=== PATIENT | female | born 1970 | race Caucasian/White ===

== ENCOUNTER 2023-10-12 19:10 | Inpatient (IN) | payer MEDICAID, SELFPAY ==
--- NOTE | 2023-10-12 19:37 | XR_ITS ---
PROCEDURE INFORMATION: Exam: XR Chest Exam date and time: 10/12/2023 8:40 PM Age: 53 years old Clinical indication: Pain; Chest pressure; Additional info: Cp TECHNIQUE: Imaging protocol: Radiologic exam of the chest. Views: 1 view. COMPARISON: No relevant prior studies available. FINDINGS: Lungs: Interstitial prominence in the lower lungs. No focal consolidation. Pleural spaces: No pleural effusion. No pneumothorax. Heart/Mediastinum: Cardiomediastinal silhouette is normal. Bones/joints: No acute abnormality. IMPRESSION: Interstitial prominence in the lower lungs, may represent infectious/inflammatory process or mild interstitial edema. No focal consolidation.
--- NOTE | 2023-10-12 19:39 | P.HP_ITS ---
History of Present Illness *Admission Date: 10/12/23 *Reason for visit:: SOB/NSTEMI *History of present illness: This is a 53-year-old female, with past medical history of COPD on home oxygen 3 L at nighttime, hypertension, HLD, anxiety coming to the [facility] ER for evaluation increase of shortness of breath. Initially patient reported symptoms began the night before admission. She also reported having cough with some productive greenish sputum. Denies any fever, or chest pain, chills or sweats, no nausea or vomiting. On arrival patient underwent a CT of the chest that ruled out PEs. EKG was showed normal sinus rhythm with ST-T elevations or depressions. Initial troponin at her facility was elevated, therefore, our facility was contacted for transfer and cardiology consult. On arrival here. Patient continues to have difficulty breathing, remains on 3 L. Denies chest pain. Admitted for further workup [facility] Disclaimer: The information contained in this section may have been updated after the patient was seen, as this information can be updated by other users. Medical History Acute Crohn's disease Anxiety COPD (chronic obstructive pulmonary disease) Emphysema lung Heart disease Post hysterectomy menopause Surgical History H/O breast biopsy Family History Father Heart disease Mother Diabetes Sister Diabetes Other Stroke Social History Smoking Status: Current every day smoker alcohol intake: never current occupational status: other Travel in the last 8 weeks: None Review of Systems Review of Systems Review of systems:: pertinent systems reviewed and negative unless documented below Meds Home Medications and Allergies Home Medications Medication Instructions Recorded Confirmed Type atorvastatin 40 mg tablet 40 mg PO DAILY Cholesterol 10/12/23 10/12/23 History cariprazine 3 mg capsule (Vraylar) 3 mg PO DAILY Mood 10/12/23 10/12/23 History carvedilol 3.125 mg tablet (Coreg) 3.125 mg PO BID High Blood Pressure 10/12/23 10/12/23 History furosemide 40 mg tablet 20 - 40 mg PO DAILYP PRN Edema 10/12/23 10/13/23 History hydrochlorothiazide 12.5 mg capsule 25 mg PO DAILY Fluid 10/12/23 10/13/23 History hydrocodone 7.5 mg-acetaminophen 1 tab PO Q6HP PRN Moderate Pain 10/12/23 10/13/23 History 325 mg tablet (Scale Score 5-6) montelukast 10 mg tablet 10 mg PO PM Allergy Symptoms 10/12/23 10/13/23 History paroxetine HCl 20 mg tablet 20 mg PO DAILY 10/12/23 10/12/23 History trazodone 50 mg tablet 50 mg PO HSP PRN Insomnia 10/12/23 10/13/23 History albuterol sulfate 90 mcg/actuation 2 puff inhalation Q4HP PRN 10/13/23 10/13/23 History aerosol inhaler (Ventolin HFA) Shortness Of Breath aspirin 81 mg tablet,delayed 81 mg PO DAILY Heart Health 10/13/23 10/13/23 History release cyclobenzaprine 10 mg tablet 10 mg PO TID Muscle Spasm 10/13/23 10/13/23 History gabapentin 600 mg tablet 600 mg PO QID Pain 10/13/23 10/13/23 History ipratropium 0.5 mg-albuterol 3 mg 3 ml inhalation Q4HP PRN Wheezing 10/13/23 10/13/23 History (2.5 mg base)/3 mL nebulization soln ipratropium 20 mcg-albuterol 100 1 puff inhalation QID Breathing 10/13/23 10/13/23 History mcg/actuation mist for inhalation Problems (Combivent Respimat) New Prescriptions to Start Prescriptions: Allergies Allergy/AdvReac Type Severity Reaction Status Date / Time azithromycin AdvReac Severe Swelling Verified 10/12/23 20:05 of Lip/Tongue/Throat Penicillins AdvReac Severe Swelling Verified 10/12/23 20:05 of Lip/Tongue/Throat Exam Constitutional Constitutional: mild distress and cooperative *Routine HEENT Exam Head: Present normocephalic and atraumatic Eye: Present EOMI, PERRL and normal accommodation ENT: Present mucous membranes moist *Routine Neck Exam Neck: Present supple, full ROM and trachea midline *Routine Respiratory Exam Respiratory: Present prolonged expiratory phase, wheezes, diminished air movement and symmetric chest movement *Routine Cardiovascular Exam Cardiovascular: Present RRR, Normal S1 and Normal S2 *Routine Abdominal Exam Abdominal: Present soft and normoactive bowel sounds; Absent organomegaly *Routine Rectal Exam Rectal:: deferred *Routine Genitalia Exam Genitalia:: deferred *Routine Extremities Exam Extremities: Present full ROM and pulses intact; Absent cyanosis, clubbing or edema *Routine Skin Exam Skin: Present intact, dry and warm *Routine Neurological Exam Neurological: Present alert, oriented X3, normal reflexes, moving all extremities and normal speech Routine Psychiatric Exam Psychiatric: Present normal thought process, cooperative and anxious H&P: Result Imaging and Cardiology EKG: Status: image reviewed by me and Preliminary report Chest x-ray: Status: image reviewed by me, Preliminary report and final report Assessment and Plan *Assessment and plan (1) COPD exacerbation: Status: Acute Category: Medical Code(s): J44.1 - Chronic obstructive pulmonary disease with (acute) exacerbation (2) Elevated troponin: Status: Acute Category: Medical Code(s): R79.89 - Other specified abnormal findings of blood chemistry (3) Anxiety: Status: Acute Category: Medical Code(s): F41.9 - Anxiety disorder, unspecified (4) Current smoker: Status: Acute Category: Social Hx Code(s): F17.200 - Nicotine dependence, unspecified, uncomplicated Plan 53-year-old female, with past medical history of COPD on home oxygen 3 L at nighttime, hypertension, HLD, anxiety coming to the [facility] ER for evaluation increase of shortness of breath. Initially patient reported symptoms began the night before admission. Medications from other facility reviewed independently. No negative for acute intrathoracic process. EKG is reviewed. No ischemic changes. Patient remains on 3 L of nasal cannula. Physical exam remarkable for wheezing and cough. New set of lab ordered. Cardiology was consulted. Discussed case for management. Plan as follow: -Acute exacerbation of COPD: Presented with increased dyspnea and oxygen demand. Admit patient for medical services. Dispo MedSurg Obtain chest x-ray Started on doxycycline IV empirically DuoNeb every 6 Monitor for O2 saturation. Keep above 90, currently on 3 L Sputum culture pending Patient is swabbed for COVID and influenza negative -Elevated troponin: Presented with chest pain-free. NSTEMI. Likely type II. Due to oxygen demand/ mismatch Continue serial troponin Cardiac continuous telemetry Cardiology consult Keep n.p.o. after midnight for possible cardiac intervention Resume home med Nitroglycerin sublingual for pain management as needed On aspirin and statin Carvedilol and hydrochlorothiazide Anxiety exacerbated due to acute hospitalization Resume home Paxil trazodone one time Clonazepam 0.25mg given Current smoker On nicotine patch daily Lovenox for DVT prophylaxis. May hold it for cardiac catheterization On Protonix full code Rounded on patient after nurse practitioner. Personally examined and interviewed patient. Agree with exam findings and care plan as documented.
[2023-10-12 20:00] VITALS: BP 126/76; PULSE 94; RESP 20; TEMP 36.6; O2SAT 93
[2023-10-12 20:27] LABS: Basophils % 0.8 % (0.1-2.0); Eosinophils % 0.3 % (0.1-12.0); Hematocrit 45.3 % (37.0-47.0); Hemoglobin 15.2 g/dL (12.2-16.2); Lymphocytes % 34.3 % (10-50); Mean Corpuscular HGB Conc 33.6 g/dL (31.8-35.4); Mean Corpuscular Volume 89.3 fl (81-99); Mean Platelet Volume 9.5 fl (7.4-10.4); Monocytes # 0.1 K/mm3 (0.1-1.0); Monocytes % 2.2 % (1.7-9.3); Neutrophils # 1.9 K/mm3 (1.8-7.8); Neutrophils % 62.5 % (37.0-80.0); Platelet Count 105 K/mm3 (142-424); Red Blood Count 5.07 M/mm3 (4.20-5.40); Red Cell Distribution Width 14.3 % (11.5-17.5)
[2023-10-12 21:23] LABS: Troponin I 0.37 ng/ml (0.00-0.034)
--- NOTE | 2023-10-12 21:24 | PC.NURSE ---
2122 LAB CALLED CRITICAL TROPONIN 0.37. CHRISTINA Herring NP NOTIFIED. NO NEW ORDERS
[2023-10-12] MEDS: PANTOPRAZOLE 40MG TABLET 40 MG PO (21:27)
[2023-10-12 21:48] LABS: Chloride 102 mmol/L (98-107); Potassium 3.7 mmoL/L (3.5-5.1); Sodium 137 mmol/L (136-145)
[2023-10-12 21:50] LABS: Blood Urea Nitrogen 8 mg/dl (7-17); Estimated Glomerular Filt Rate 130 ml/min (>60); GFR (African American) 157 ML/MIN (>60)
[2023-10-12 21:51] LABS: Alanine Aminotransferase 30 U/L (12-78); Albumin Level 3.4 g/dl (3.5-5.0); Albumin/Globulin Ratio 1.3 (1.1-1.8); Alkaline Phosphatase 83 U/L (38-126); Anion Gap 7.7 mEq/L (5-15); Aspartate Amino Transferase 44 U/L (14-36); Bilirubin,Total 0.5 mg/dl (0.2-1.3); Calcium 8.6 mg/dl (8.4-10.2); Carbon Dioxide 31 mmol/L (22.0-30.0); Chol/HDL Ratio 5.1 (1-3.5); Cholesterol 139 mg/dl (140-200); Globulin 2.6 g/dL (1.3-3.2); Glucose 127 mg/dl (74-100); HDL Cholesterol 27 mg/dl (40-60); Triglycerides 110 mg/dl (30-150); VLDL Cholesterol 22 mg/dL (0-40)
[2023-10-12 22:49] LABS: Direct LDL Cholesterol 96.42 mg/dL (100-129)
[2023-10-12] MEDS: NICOTINE 21MG/24HR PATCH 21 MG TD (22:50)
[2023-10-12] MEDS: CARVEDILOL 3.125MG TABLET 3.125 MG PO (22:50)
[2023-10-12] MEDS: APAP/HYDROCODONE 325MG/7.5MG TAB 1 TAB PO (22:50)
[2023-10-12] MEDS: TRAZODONE 50MG TABLET 50 MG PO (22:51)
[2023-10-12] MEDS: IPRATROPIUM/ALBUTEROL 3 ML NEB IH (23:05)
--- NOTE | 2023-10-12 23:08 | PC.NURSE ---
RECEIVED VERBAL REPORT FROM Tano FOX RN AT 1930. PATIENT IS A 53 YO FEMALE WHO IS BEING TRANSPORTED FROM [facility]. DIAGNOSIS NSTEMI.
--- NOTE | 2023-10-12 23:10 | PC.NURSE ---
PATIENT ARRIVED AT 1913 VIA STRETCHER FROM [facility].
--- NOTE | 2023-10-12 23:10 | PC.NURSE ---
pt arrived to floor via [place] [facility] @07:15pm
--- NOTE | 2023-10-12 23:11 | PC.NURSE ---
PATIENT ANGRY. WANTS VALIUM FOR HER NERVES. VALIUM IS NOT ONE OF HER HOME MEDS. HAS PAXIL FOR ANXIETY BUT REFUSES THE PAXIL STATING ITS USELESS .
[2023-10-12 23:31] VITALS: PULSE 100; PULSE 98
[2023-10-13] VITALS (14 sets, daily range): BP systolic 101–147; BP diastolic 57–91; PULSE 67–103; RESP 16–20; TEMP 36.4–36.8; O2SAT 93–99; BMI 26.0
[2023-10-13] MEDS: DOXYCYCLINE HYCLATE 100 MG in 0.9 % SODIUM CHLORIDE 250 ML 166.667000000000002 MG IV ×2 (01:33→13:38)
[2023-10-13 02:27] LABS: Adenovirus,PCR Not Detected (NotDetected); Coronavirus 19, PCR Not Detected (NotDetected); Coronavirus 229E Not Detected (NotDetected); Coronavirus NL63 Not Detected (NotDetected); Coronavirus OC43 Not Detected (NotDetected); Coronovirus HKU1,PCR Not Detected (NotDetected); Human Metapneumovirus Not Detected (NotDetected); Influenza A, PCR Not Detected (NotDetected); Influenza AH1, 2009 Not Detected (NotDetected); Influenza AH1, PCR Not Detected (NotDetected); Influenza AH3,PCR Not Detected (NotDetected); Influenza B, PCR Not Detected (NotDetected); Parainfluenza 1, PCR Not Detected (NotDetected); Parainfluenza 2, PCR Not Detected (NotDetected); Parainfluenza 3, PCR Not Detected (NotDetected); Parainfluenza 4, PCR Not Detected (NotDetected); Respiratory Syncytial Virus Not Detected (NotDetected); Rhinovirus/Enterovirus Not Detected (NotDetected)
[2023-10-13] MEDS: clonazePAM 0.5MG TABLET 0.25 MG PO (02:28)
--- NOTE | 2023-10-13 02:32 | PC.NURSE ---
PATIENT IS ANGRY. WANTS VALIUM. WANTS MORE PAIN MED. REFUSES TO REMAIN NPO FOR CARDIOLOGY CONSULT. HAS REMOVED HER 02. HAVE SPOKEN TO CHRISTINA Herring FACILITIES OFFICER RE HER MEDS. NOTIFIED SCRAP DROP ENGINEER TO COME SPEAK WITH PATIENT SHE WILL NOT LISTEN TO ME. PAIN IS CHRONIC BACK PAIN. DENIES CHEST PAIN.
--- NOTE | 2023-10-13 02:44 | PC.NURSE ---
PATIENT DEMANDING 4 DR. GRANADOS AND A PITCHER OF ICE. EXPLAINED TO PATIENT THAT DR. DANG NOTING BY MOUTH FOR CARDIOLOGY CONSULT. PATIENT STATED THAT SHE WAS GOING TO DRINK AND IT WAS UP TO HER IF SHE HAD ANY PROCEDURE DONE. DR. GRANADOS AND ICE TAKEN TO PATIENT. PATIENT UPSET WITH PRIMARY NURSE REGARDING PAIN MEDS STATES SHE TAKES EVERY FOUR TO SIX HOURS NEEDED AND SHE TOOK IT AT 9 PM. MAR SHOWS MEDS ARE SCHEDULED AND RECEIVED AT 2250. PRIMARY NURSE SPOKE WITH REGIONAL ENGAGEMENT CONSULTANT, NO NEW ORDERS NOTED AT THIS TIME.
--- NOTE | 2023-10-13 02:46 | PC.NURSE ---
PATIENT REQUESTING AN XTRA NORCO 7.5MG . CHRISTINA Otoole NP NOTIFIED BUT DOES NOT WANT TO GIVE HER MORE NORCO AT THIS TIME. TRIED TO EXPLAIN TO PATIENT BUT SHE IS ANGRY. SAYS SHE WILL HAVE HER SISTER BRING THEM IN AND SHE WILL TAKE IT ANYWAY. ALSO REFUSES TO REMAIN NPO. REQUESTED AND RECEIVED 4 DR GRANADOS. CHRISTINA Herring NP NOTIFIED.
--- NOTE | 2023-10-13 02:49 | PC.NURSE ---
PATIENT ALSO REFUSING LABS.
--- NOTE | 2023-10-13 05:04 | PC.NURSE ---
REFUSES TO WEAR TELEMETRY.
[2023-10-13 06:15] LABS: Basophils % 0.5 % (0.1-2.0); Eosinophils % 0.1 % (0.1-12.0); Hematocrit 41.5 % (37.0-47.0); Hemoglobin 14.4 g/dL (12.2-16.2); Lymphocytes # 1.6 K/mm3 (0.7-4.5); Lymphocytes % 35.7 % (10-50); Mean Corpuscular HGB Conc 34.8 g/dL (31.8-35.4); Mean Corpuscular Hemoglobin 30.7 pg (27.0-31.2); Mean Corpuscular Volume 88.2 fl (81-99); Mean Platelet Volume 9.7 fl (7.4-10.4); Monocytes # 0.3 K/mm3 (0.1-1.0); Monocytes % 6.9 % (1.7-9.3); Neutrophils # 2.5 K/mm3 (1.8-7.8); Neutrophils % 56.8 % (37.0-80.0); Platelet Count 103 K/mm3 (142-424); Red Blood Count 4.71 M/mm3 (4.20-5.40); Red Cell Distribution Width 14.2 % (11.5-17.5); White Blood Count 4.4 K/mm3 (4.8-10.8)
[2023-10-13 06:17] LABS: Alanine Aminotransferase 32 U/L (12-78); Albumin Level 3.4 g/dl (3.5-5.0); Albumin/Globulin Ratio 1.3 (1.1-1.8); Alkaline Phosphatase 74 U/L (38-126); Anion Gap 8.5 mEq/L (5-15); Aspartate Amino Transferase 40 U/L (14-36); Bilirubin,Total 0.5 mg/dl (0.2-1.3); Blood Urea Nitrogen 11 mg/dl (7-17); Calcium 8.8 mg/dl (8.4-10.2); Carbon Dioxide 29 mmol/L (22.0-30.0); Chloride 104 mmol/L (98-107); Chol/HDL Ratio 6.1 (1-3.5); Cholesterol 134 mg/dl (140-200); Creatinine Clearance Estimated 148 mL/min (50-200); Estimated Glomerular Filt Rate 130 ml/min (>60); GFR (African American) 157 ML/MIN (>60); Globulin 2.7 g/dL (1.3-3.2); Glucose 125 mg/dl (74-100); HDL Cholesterol 22 mg/dl (40-60); Magnesium 1.8 mg/dl (1.6-2.3); Potassium 3.5 mmoL/L (3.5-5.1); Sodium 138 mmol/L (136-145); Total Protein,Serum 6.1 g/dl (6.3-8.2); Triglycerides 127 mg/dl (30-150); VLDL Cholesterol 25 mg/dL (0-40)
[2023-10-13] MEDS: IPRATROPIUM/ALBUTEROL 3 ML NEB IH ×4 (06:30→23:54)
--- NOTE | 2023-10-13 08:40 | CA_ITS ---
APPROVED REPORT EXAM: Comprehensive 2D, Doppler, and color-flow Echocardiogram Box Spring Maker: Ana Lucia RT(R) Ht: 5 ft 5 in Wt: 156lbs BSA: 1.78 BP: 143/72 mmHg Indications: NSTEMI, SOA, COPD, smoker, HTN, hyperlipidemia, emphysema, home O2, heart disease 2D Dimensions EF AP4 62.10 % GL Strain -16.0 % M-Mode Dimensions RVDd 2.41 cm (0.9-2.6) LA Diam 2.50 cm (1.9-4.0) LVDd 3.62 cm (3.5-5.7) LVDs 2.74 cm (3.5-5.7) IVSd 0.97 cm (0.6-1.1) PWd 0.85 cm (0.6-1.1) EF (Teich) 49.30% FS 24.30% EDV (Teich) 55.20 mL ESV (Teich) 28.00 mL LV Diastology E Decel Time 150 (160-240 msec) E/A Ratio 1.1 Mitral Valve MV E Max Zeus. 84.0 (40-130 cm/s) MV A Velocity 78.0 (40-130 cm/s) E/A Ratio 1.07 MV PHT 44.0 ms Left Ventricle The left ventricle is normal size. The left ventricular systolic function is normal. The left ventricular ejection fraction is within the normal range. There is increased left ventricular wall thickness. There is normal LV segmental wall motion. The left ventricular diastolic function is normal. LVEF is 60%. Right Ventricle The right ventricle is normal size. The right ventricular systolic function is normal. Atria The left atrium size is normal. The right atrium size is normal. There is no Doppler evidence of interatrial shunt. Aortic Valve The aorti valve opens well. There is no aortic valvular stenosis. No aortic regurgitation is present. Mitral Valve The mitral valve is normal in structure. No evidence of mitral valve stenosis. There is no mitral valve regurgitation noted. Tricuspid Valve The tricuspid valve leaflets are thin and pliable. Trace tricuspid regurgitation. There is insufficient TR jet to estimate RVSP. Pulmonic Valve The pulmonary valve is normal in structure. Trace pulmonic regurgitation. Great Vessels The aortic root is normal in size. The ascending aorta is not well visualized. The IVC is dilated, but collapses > 50% with respirophasic variation. RA pressure is estimated at 8 mmHg. Pericardium There is no pericardial effusion. Other Information Study Quality: Technically Difficult Conclusion Technically difficult study due to poor accoustic windows. Normal biventricular systolic function. No significant valvular stenosis or regurgitation. Electronically signed by : Bettie Reveles MD 10/13/2023 20:01:58
[2023-10-13 08:45] LABS: NT Pro Brain Natriuretic Pep. 2650 pg/mL (0-125)
--- NOTE | 2023-10-13 08:54 | HMH.PHAINT1 ---
Pharmacy Intervention Comments: MEDICATION RECONCILIATION COMPLETED ON PATIENT USING EXTERNAL FILL HISTORY FROM PHARMACY AND [facility] REPORT. -ARIANA COBOS, MACYD
[2023-10-13] MEDS: ASPIRIN EC 81MG TABLET 81 MG PO (09:15)
[2023-10-13] MEDS: PANTOPRAZOLE 40MG TABLET 40 MG PO (09:15)
[2023-10-13] MEDS: ATORVASTATIN 40MG TABLET 40 MG PO (09:15)
[2023-10-13] MEDS: APAP/HYDROCODONE 325MG/7.5MG TAB 1 TAB PO ×4 (09:15→20:06)
[2023-10-13] MEDS: CARVEDILOL 3.125MG TABLET 3.125 MG PO ×2 (09:15→20:05)
--- NOTE | 2023-10-13 11:41 | P.CONCA_ITS ---
History of Present Illness History of Present Illness Consult date: 10/13/23 Requesting physician: Raudel Bruno Consult reason: chest pain Chief complaint: Chest pain shortness of breath History of present illness: 53-year-old white female without known cardiovascular disease who has COPD and history of tobacco use. She is on 3 L of oxygen nightly. Patient reports several weeks of worsening episodes of mild chest discomfort with dyspnea on exertion walking flat ground. Yesterday she was just ambulating through her house and had sudden onset of severe heaviness and pressure in substernal region without radiation. She presented to [facility] emergency room where initial troponin and proBNP were elevated. She was transferred to this facility for cardiac evaluation. She was placed on guideline directed medical therapy overnight. This morning reports symptoms are slightly improved. Her EKG shows sinus rhythm with anteroseptal ST and T wave flattening. Her troponins elevated to 0.3 and are now trending down, chest x-ray shows interstitial prominence lower lungs edema versus infection, her white blood cell count is 4. LDL is 89 and blood pressure is 118. [facility] Disclaimer: The information contained in this section may have been updated after the patient was seen, as this information can be updated by other users. Medical History Acute Crohn's disease Anxiety COPD (chronic obstructive pulmonary disease) Emphysema lung Heart disease Post hysterectomy menopause Surgical History H/O breast biopsy Family History Father Heart disease Mother Diabetes Sister Diabetes Other Stroke Social History Smoking Status: Current every day smoker alcohol intake: never current occupational status: other Travel in the last 8 weeks: None Review of Systems Constitutional Constitutional: Denies fatigue and Denies weakness Eyes Eyes: Denies loss of vision ENT Ears, Nose, Mouth, and Throat: Denies hearing loss and Denies vertigo *Cardiovascular Cardiovascular: Denies chest pain, Reports dyspnea and Denies syncope *Respiratory Respiratory: Reports cough and Reports dyspnea *Gastrointestinal Gastrointestinal: Denies change in stool character, Denies nausea and Denies vomiting *Musculoskeletal Musculoskeletal: Denies muscle weakness Integumentary/Breasts Skin/Breast: Denies changing lesions *Neurologic Neurologic: Denies loss of vision, Denies syncope, Denies vertigo and Denies weakness Endocrine Endocrine: Denies fatigue Exam Data for Last 24 hours Vital signs and Labs for Last 24 Hours: Temp Pulse Resp BP Pulse Ox O2 Del Method O2 Flow Rate 98.2 F 77 18 125/65 99 Nasal Cannula 3 10/13/23 11:27 10/13/23 11:27 10/13/23 11:27 10/13/23 11:27 10/13/23 11:27 10/13/23 11:27 10/13/23 11:27 Laboratory Results - last 24 hr 10/12/23 01:40: Chlamy pneumoniae PCR TNP, Adenovirus (PCR) Not detected, B. pertussis DNA (PCR) TNP, Coronavirus OC43 (PCR) Not detected, Coronavirus HKU1 (PCR) Not detected, Coronavirus 229E (PCR) Not detected, SARS-CoV-2 (PCR) Not detected, Coronavirus NL63 (PCR) Not detected, Human Metapneumovir PCR Not detected, Influenza A (H1) PCR Not detected, Influ A (H1N1/09) PCR Not detected, Influenza A (H3) PCR Not detected, Influenza Type A (PCR) Not detected, Influenza Type B (PCR) Not detected, M. pneumoniae (PCR) TNP, Parainfluenza 1 (PCR) Not detected, Parainfluenza 2 (PCR) Not detected, Parainfluenza 3 (PCR) Not detected, Parainfluenza 4 (PCR) Not detected, RSV (PCR) Not detected, Entero/Rhino (PCR) Not detected 10/12/23 20:07: WBC 3.0 L, RBC 5.07, Hgb 15.2, Hct 45.3, MCV 89.3, MCH 30.0, MCHC 33.6, RDW 14.3, Plt Count 105 L, MPV 9.5, Neut % (Auto) 62.5, Lymph % (Auto) 34.3, Vermilion % (Auto) 2.2, Eos % (Auto) 0.3, Baso % (Auto) 0.8, Neut # (Auto) 1.9, Lymph # (Auto) 1.0, Vermilion # (Auto) 0.1, Eos # (Auto) 0.0, Baso # (Auto) 0.0, Sodium 137, Potassium 3.7, Chloride 102, Carbon Dioxide 31 H, Anion Gap 7.7, BUN 8, Creatinine 0.50 L, Estimated GFR 130, Est GFR ( Amer) 157, Glucose 127 H, Calcium 8.6, Total Bilirubin 0.5, AST 44 H, ALT 30, Alkaline Phosphatase 83, Troponin I 0.37 H, Total Protein 6.0 L, Albumin 3.4 L, Globulin 2.6, Albumin/Globulin Ratio 1.3, Triglycerides 110, Cholesterol 139 L, LDL Cholesterol Direct 96.42 L, VLDL Cholesterol 22, HDL Cholesterol 27 L, Cholesterol/HDL Ratio 5.1 H 10/13/23 05:52: WBC 4.4 L D, RBC 4.71, Hgb 14.4, Hct 41.5, MCV 88.2, MCH 30.7, MCHC 34.8, RDW 14.2, Plt Count 103 L, MPV 9.7, Neut % (Auto) 56.8, Lymph % (Auto) 35.7, Vermilion % (Auto) 6.9, Eos % (Auto) 0.1, Baso % (Auto) 0.5, Neut # (Auto) 2.5, Lymph # (Auto) 1.6, Vermilion # (Auto) 0.3, Eos # (Auto) 0.0, Baso # (Auto) 0.0, Sodium 138, Potassium 3.5, Chloride 104, Carbon Dioxide 29, Anion Gap 8.5, BUN 11 D, Creatinine 0.50 L, Estimated Creat Clear 148, Estimated GFR 130, Est GFR ( Amer) 157, Glucose 125 H, Calcium 8.8, Magnesium 1.8, Total Bilirubin 0.5, AST 40 H, ALT 32, Alkaline Phosphatase 74, Troponin I 0.20 H, NT-Pro-B Natriuret Pep 2650 H, Total Protein 6.1 L, Albumin 3.4 L, Globulin 2.7, Albumin/Globulin Ratio 1.3, Triglycerides 127, Cholesterol 134 L, LDL Cholesterol Direct 89.70 L, VLDL Cholesterol 25, HDL Cholesterol 22 L, Cholesterol/HDL Ratio 6.1 H I & O for Last 24 hours: Intake & Output 10/10/23 10/11/23 10/12/23 10/13/23 23:59 23:59 23:59 23:59 Intake Total 2161 Output Total 2 / 3 Balance -2 / 441 2160 Weight 156 lb 9.6 oz Constitutional Constitutional: no acute distress and cooperative *Routine HEENT Exam Eye: Present PERRL *Routine Respiratory Exam Respiratory: Present CTA bilaterally; Absent accessory muscle use, wheezes or crackles Comments: Mild expiratory wheezes *Routine Cardiovascular Exam Cardiovascular: Present RRR, Normal S1 and Normal S2; Absent murmur, gallop or rubs *Routine Abdominal Exam Abdominal: Present soft; Absent tenderness *Routine Extremities Exam Extremities: Present pulses intact; Absent cyanosis or edema *Routine Skin Exam Skin: Present intact; Absent erythema or wounds *Routine Neurological Exam Neurological: Present alert and oriented X3 Routine Psychiatric Exam Psychiatric: Present cooperative Meds Home Medications and Allergies Home Medications Medication Instructions Recorded Confirmed Type atorvastatin 40 mg tablet 40 mg PO DAILY Cholesterol 10/12/23 10/12/23 History cariprazine 3 mg capsule (Vraylar) 3 mg PO DAILY Mood 10/12/23 10/12/23 History carvedilol 3.125 mg tablet (Coreg) 3.125 mg PO BID High Blood Pressure 10/12/23 10/12/23 History furosemide 40 mg tablet 20 - 40 mg PO DAILYP PRN Edema 10/12/23 10/13/23 History hydrochlorothiazide 12.5 mg capsule 25 mg PO DAILY Fluid 10/12/23 10/13/23 History hydrocodone 7.5 mg-acetaminophen 1 tab PO Q6HP PRN Moderate Pain 10/12/23 10/13/23 History 325 mg tablet (Scale Score 5-6) montelukast 10 mg tablet 10 mg PO PM Allergy Symptoms 10/12/23 10/13/23 History paroxetine HCl 20 mg tablet 20 mg PO DAILY 10/12/23 10/12/23 History trazodone 50 mg tablet 50 mg PO HSP PRN Insomnia 10/12/23 10/13/23 History albuterol sulfate 90 mcg/actuation 2 puff inhalation Q4HP PRN 10/13/23 10/13/23 History aerosol inhaler (Ventolin HFA) Shortness Of Breath aspirin 81 mg tablet,delayed 81 mg PO DAILY Heart Health 10/13/23 10/13/23 History release cyclobenzaprine 10 mg tablet 10 mg PO TID Muscle Spasm 10/13/23 10/13/23 History gabapentin 600 mg tablet 600 mg PO QID Pain 10/13/23 10/13/23 History ipratropium 0.5 mg-albuterol 3 mg 3 ml inhalation Q4HP PRN Wheezing 10/13/23 10/13/23 History (2.5 mg base)/3 mL nebulization soln ipratropium 20 mcg-albuterol 100 1 puff inhalation QID Breathing 10/13/23 10/13/23 History mcg/actuation mist for inhalation Problems (Combivent Respimat) New Prescriptions to Start Prescriptions: Allergies Allergy/AdvReac Type Severity Reaction Status Date / Time azithromycin AdvReac Severe Swelling Verified 10/12/23 20:05 of Lip/Tongue/Throat Penicillins AdvReac Severe Swelling Verified 10/12/23 20:05 of Lip/Tongue/Throat Assessment and Plan *Assessment and plan (1) NSTEMI (non-ST elevated myocardial infarction): Status: Acute Category: Medical Code(s): I21.4 - Non-ST elevation (NSTEMI) myocardial infarction (2) COPD exacerbation: Status: Acute Category: Medical Code(s): J44.1 - Chronic obstructive pulmonary disease with (acute) exacerbation Plan NSTEMI -Worsening episodes of class III angina with rising serial troponin and EKG changes -Discussed options with patient, she is agreeable to left heart cath -Continue DAPT, beta-lew, statin COPD exacerbation -Patient on 3 L/min at home, former smoker -Nebs antibiotics etc. per primary service
--- NOTE | 2023-10-13 12:06 | IR_ITS ---
APPROVED REPORT Patient Location: Inpatient Circulating Nurse: JOSEPH Lauren RT (R) PROCEDURES Left heart catheterization Left ventriculogram Selective coronary angiogram INDICATION Acute non-ST elevation myocardial infarction Informed consent was obtained prior to the procedure. COMPLICATIONS NONE Estimated Blood Loss: LESS THAN 10 ML TECHNIQUE One percent lidocaine used to anesthetize the right anterior aspect of the wrist. The right radial artery was accessed via the Seldinger technique. A 6 Slovenian sheath was placed in the right radial artery. 2.5 mg of Verapamil, 800 mcg of nitroglycerin, 1mg Lidocaine and 5000 U Heparin were given through the arterial sheath. The papa catheter was also used to perform left heart catheterization, left ventriculogram and selective coronary angiogram. At the end of the procedure the sheath was removed good hemostasis was achieved using Traclet band, patient was transferred to the postop holding area in stable condition. ANGIOGRAPHIC RESULTS The left main artery Normal The left anterior descending artery Proximal mild 10% luminal irregularities with mid vessel 20% luminal regularities The circumflex artery Nondominant with proximal 10% luminal irregularities The right coronary artery Dominant with mid vessel 10 to 20% luminal regularities The VILLATORO ventriculogram reveals Mid anterior apical moderate hypokinesis with estimated ejection fraction of 40% The left ventricular end-diastolic pressure 30 mmHg IMPRESSION Mild nonflow limiting coronary artery disease Takotsubo cardiomyopathy producing large regional wall motion abnormality and reduced ejection fraction Elevated LVEDP PLAN 1. Supportive care for the stress cardiomyopathy. Recommend beta-blockers and ANURADHA inhibitors prior to discharge home 2. Echocardiogram to better evaluate ejection fraction 3. LDL less than 55 to be achieved with high intensity statin 4. Avoidance of tobacco products Electronically signed by : Lavell Curiel MD 10/13/2023 13:01:36
[2023-10-13] MEDS: VERAPAMIL 2.5MG/ML 2ML VIAL 2.5 MG IV (12:47)
[2023-10-13] MEDS: HEPARIN 1,000 UNITS/ML 10ML VIAL (CATH LAB) 10000 UNIT IV (12:48)
[2023-10-13] MEDS: NITROGLYCERIN 800MCG/8ML SYR (CATH LAB) 800 MCG IA (12:48)
[2023-10-13] MEDS: LIDOCAINE 1% 10ML MDV 20 ML IJ (12:48)
[2023-10-13] MEDS: FENTANYL 250MCG/5ML VIAL 50 MCG IV (13:01)
[2023-10-13] MEDS: MIDAZOLAM HCL 1MG/1ML 5ML VIAL 1 MG IV (13:02)
--- OUTSIDE RECORDS SUMMARY | 2023-10-13 13:06 | XMS_ITS | Continuity of Care Document ---
Author Name Unknown Address [address] [place] [phone] Organization [facility] Phone Care Team Providers Care Mural Artist Name Role Phone BOOM MACIAS Unavailable EMMANUEL SILVER Primary Care BOOM MACIAS Primary Attending BOOM MACIAS Admitting ALLERGIES AND ADVERSE REACTIONS ALLERGIES AND ADVERSE REACTIONS Code System Allergy Substance Adverse Reaction Date Reaction (Severity) [place] [id number] RXNorm Azithromycin Adverse reaction to substance Not Specified active [id number] on October 12, 2023 8:40:54 PM UTC RESULTS Patient: JUAN MONTGOMERY Date of : 1970 LABORATORY RESULTS ORDER 100: B-TYPE NATRIURETI C PEPTIDE BNP (LOINC: 53735-6) ORDER DATE: October 12, 2023 5:56:00 PM UTC Specimen Source: Whole Blood PERFORMING LAB: [address] [id number] Result Comment: Final Result Date: October 12, 2023 6:32:00 PM UTC (TECH: MRB) LOINC TEST FLAG [place] [address]-1 Natriuretic peptide B [Mass/volume] in Serum or Plasma N 9.4 pg/mL 0.0 pg/mL - 100 pg/mL October 12, 2023 6:32:00 PM UTC (TECH: MRB) ORDER 400: CBC AUTO W DIFF ( LOINC: 74800-8) ORDER DATE: October 12, 2023 5:56:00 PM UTC Specimen Source: Whole Blood PERFORMING LAB: [address] [id number] Result Comment: Final Result Date: October 12, 2023 6:24:00 PM UTC (TECH: MRB) LOINC TEST FLAG RESULT REFERENCE RANGE UPDA PIPER BY 6690-2 Leukocytes [#/volume] in Blood by Automated count N 5.4 10^3/uL 4.5 10^3/uL - 11.5 10^3/uL October 12, 2023 6:24:00 PM UTC (TECH: MRB) 789-8 Erythrocytes [#/volume] in Blood by Automated count N 5.51 10^6/uL 4.25 10^6/uL - 5.57 10^6/uL October 12, 2023 6:24:00 PM UTC (TECH: MRB) 718-7 Hemoglobin [Mass/volume] in Blood N 16.3 g/dL 13.5 g/dL - 17.2 g/dL October 12, 2023 6:24:00 PM UTC (TECH: MRB) 25373-7 Hematocrit [Volume Fraction] of Blood N 47.7 % 42.0 % - 52.0 % October 12, 2023 6:24:00 PM UTC (TECH: MRB) 787-2 Erythrocyte mean corpuscular volume [Entitic volume] by Automated count N 86.6 fl 80 fl - 95 fl October 12, 2023 6:24:00 PM UTC (TECH: MRB) 67642-5 Erythrocyte mean corpuscular hemoglobin [Entitic mass] in Blood from Fetus by Automated count N 29.6 pg 27.0 pg - 34.0 pg October 12, 2023 6:24:00 PM UTC (TECH: MRB) 13872-9 Erythrocyte mean corpuscular hemoglobin concentration [Mass/volume] in Blood from Fetus by Automated count N 34.2 g/dL 32.0 g/dL - 36.0 g/dL October 12, 2023 6:24:00 PM UTC (TECH: MRB) 46594-0 Platelets [#/volume] in Blood L 124 10^3/uL 150 10^3/uL - 450 10^3/uL October 12, 2023 6:24:00 PM UTC (TECH: MRB) 90670-8 Erythrocyte distribution width [Ratio] N 13.3 % 12.3 % - 15.1 % October 12, 2023 6:24:00 PM UTC (TECH: MRB) 81082-5 Platelet mean volume [Entitic volume] in Blood by Automated count H 12.2 fl 7.4 fl - 10.4 fl October 12, 2023 6:24:00 PM UTC (TECH: MRB) 60426-9 Granulocytes/100 leukocytes in Blood by Automated count N 61.5 % 40 % - 75 % October 12, 2023 6:24:00 PM UTC (TECH: MRB) 736-9 Lymphocytes/100 leukocytes in Blood by Automated count N 30.6 % 15 % - 57 % October 12, 2023 6:24:00 PM UTC (TECH: MRB) 5905-5 Monocytes/100 leukocytes in Blood by Automated count N 7.1 % 4.0 % - 12.0 % October 12, 2023 6:24:00 PM UTC (TECH: MRB) 713-8 Eosinophils/100 leukocytes in Blood by Automated count N 0.2 % 0.0 % - 4.0 % October 12, 2023 6:24:00 PM UTC (TECH: MRB) 706-2 Basophils/100 leukocytes in Blood by Automated count N 0.4 % 0.0 % - 1.0 % October 12, 2023 6:24:00 PM UTC (TECH: MRB) 04011-4 Immature granulocytes [#/volume] in Blood N 0.2 % 0.0 % - 0.8 % October 12, 2023 6:24:00 PM UTC (TECH: MRB) 08706-4 Granulocytes [#/volume] in Blood by Automated count N 3.30 10^3/uL October 12, 2023 6:24:00 PM UTC (TECH: MRB) 731-0 Lymphocytes [#/volume] in Blood by Automated count N 1.64 10^3/uL October 12, 2023 6:24:00 PM UTC (TECH: MRB) 742-7 Monocytes [#/volume] in Blood by Automated count N 0.38 10^3/uL October 12, 2023 6:24:00 PM UTC (TECH: MRB) 711-2 Eosinophils [#/volume] in Blood by Automated count N 0.01 10^3/uL October 12, 2023 6:24:00 PM UTC (TECH: MRB) 704-7 Basophils [#/volume] in Blood by Automated count N 0.02 10^3/uL October 12, 2023 6:24:00 PM UTC (TECH: MRB) 12681-0 Immature granulocytes [#/volume] in Blood N 0.01 10^3/uL October 12, 2023 6:24:00 PM UT (TECH: MRB) 82766-0 Manual differential performed [Presence] in Blood N NO October 12, 2023 6:24:00 PM UT (TECH: MRB) ORDER 500: COMP METABOLIC PA BRIANNE (LOINC: 09637-9) ORDER DATE: October 12, 2023 5:56:00 PM UT Specimen Source: Plasma PERFORMING LAB: [address] [id number] Result Comment: Final Result Date: October 12, 2023 6:30:00 PM UT (TECH: MRB) LOINC TEST FLAG RESULT REFERENCE RANGE UPDA PIPER BY 2951-2 Sodium [Moles/volume ] in Serum or Plasma N 137 mmol/L 136 mmol/L - 145 mmol/L October 12, 2023 6:30:00 PM UT (TECH: MRB) 2823-3 Potassium [Moles/volume] in Serum or Plasma L 3.3 mmol/L 3.5 mmol/L - 5.1 mmol/L October 12, 2023 6:30:00 PM UT (TECH: MRB) 5-0 Chloride [Moles/volu me] in Serum or Plasma L 97 mmol/L 98 mmol/L - 107 mmol/L October 12, 2023 6:30:00 PM UT (TECH: MRB) 8-9 Carbon dioxide, tota l [Moles/volume] in Serum or Plasma N 32 mmol/L 21 mmol/L - 32 mmol/L October 12, 2023 6:30:00 PM UTC (TECH: MRB) 00785-7 Anion gap 3 in Serum or Plasma N 8.0 October 12, 2023 6:30:00 PM UTC (TECH: MRB) 2345-7 Glucose [Mass/volume ] in Serum or Plasma H 111 mg/dL 70 mg/dL - 110 mg/dL October 12, 2023 6:30:00 PM UTC (TECH: MRB) 3094-0 Urea nitrogen [Mass/volume] in Serum or Plasma N 7 mg/dL 7 mg/dL - 18 mg/dL October 12, 2023 6:30:00 PM [facility] (TECH: MRB) 2160-0 Creatinine [Mass/volume] in Serum or Plasma L 0.6 mg/dL 0.8 mg/dL - 1.3 mg/dL October 12, 2023 6:30:00 PM [facility] (TECH: MRB) 3097-3 Urea nitrogen/Creatinine [Mass Ratio] in Serum or Plasma N 11.7 Ratio 9 Ratio - 21 Ratio October 12, 2023 6:30:00 PM [facility] (TECH: MRB) 59936-5 Glomerular filtratio n rate/1.73 sq M.predicted by Creatinine-based formula (MDRD) N 150 mL/min >60 October 12, 2023 6:30:00 PM [facility] (TECH: MRB) 2885-2 Protein [Mass/volume ] in Serum or Plasma N 7.7 g/dL 6.4 g/dL - 8.2 g/dL October 12, 2023 6:30:00 PM [facility] (TECH: MRB) 1751-7 Albumin [Mass/volume ] in Serum or Plasma N 3.4 g/dL 3.4 g/dL - 5.0 g/dL October 12, 2023 6:30:00 PM [facility] (TECH: MRB) 22835-1 Calcium [Mass/volume ] in Serum or Plasma N 9.1 mg/dL 8.5 mg/dL - 10.1 mg/dL October 12, 2023 6:30:00 PM [facility] (TECH: MRB) 24529-7 Calcium [Mass/volume ] corrected for total protein in Serum or Plasma N 9.6 mg/dL 8.5 mg/dL - 10.1 mg/dL October 12, 2023 6:30:00 PM [facility] (TECH: MRB) 1975-2 Bilirubin.total [Mass/volume] in Serum or Plasma N 0.5 mg/dL 0.4 mg/dL - 1.5 mg/dL October 12, 2023 6:30:00 PM [facility] (TECH: MRB) 1920-8 Aspartate aminotransferase [Enzymatic activity/volume] in Serum or Plasma H 44 U/L 15 U/L - 37 U/L October 12, 2023 6:30:00 PM [facility] (TECH: MRB) 1742-6 Alanine aminotransferase [Enzymatic activity/volume] in Serum or Plasma N 35 U/L 12 U/L - 78 U/L October 12, 2023 6:30:00 PM UTC (TECH: MRB) 6768-6 Alkaline phosphatase [Enzymatic activity/volume] in Serum or Plasma N 86 U/L 50 U/L - 170 U/L October 12, 2023 6:30:00 PM UTC (TECH: MRB) ORDER 600: CK MB (LOINC: 326 73-6) ORDER DATE: October 12, 2023 5:56:00 PM UTC Specimen Source: Plasma PERFORMING LAB: [address] [id number] Result Comment: Final Result Date: October 12, 2023 6:30:00 PM UT (TECH: MRB) LOINC TEST FLAG [place] [address]-7 Creatine kinase.MB [Enzymatic activity/volume] in Serum or Plasma N 3.0 ng/mL 0.0 ng/mL - 3.6 ng/mL October 12, 2023 6:30:00 PM UTC (TECH: MRB) ORDER 800: D-DIMER QUANTITAT GO (LOINC: 7799-0) ORDER DATE: October 12, 2023 5:56:00 PM UTC Specimen Source: Plasma PERFORMING LAB: [address] [id number] Result Comment: Final Result Date: October 12, 2023 6:59:00 PM UTC (TECH: LT) LOINC TEST FLAG RESULT REFERENCE RANGE UPDA PIPER BY 7799-0 Fibrin D-dimer [Units/volume] in Platelet poor plasma HH 1094.94 ng/mL 0 ng/mL - 500 ng/mL October 12, 2023 6:59:00 PM UTC (TECH: LT) ORDER 1000: PT PROTHROMBIN T MIS W INR (LOINC: 44921-2) ORDER DATE: October 12, 2023 5:56:00 PM UTC Specimen Source: Plasma PERFORMING LAB: [address] [id number] Result Comment: Final Result Date: October 12, 2023 6:18:00 PM UTC (TECH: HC) LOINC TEST FLAG [place] [address]-0 INR in Platelet poor plasma or blood by Coagulation assay N 9.3 seconds 9.1 seconds - 12.0 seconds October 12, 2023 6:18:00 PM UTC (TECH: HC) 6301-6 INR in Platelet poor plasma by Coagulation assay L 0.84 0.9 - 1.1 October 12, 2023 6:18:00 PM UTC (TECH: HC) ORDER 1100: PTT PARTIAL THRO MB TIME (LOINC: 72413-7) ORDER DATE: October 12, 2023 5:56:00 PM UTC Specimen Source: Plasma PERFORMING LAB: [address] [id number] Result Comment: Final Result Date: October 12, 2023 6:18:00 PM UTC (TECH: HC) LOINC TEST FLAG [place] [address]-7 Activated partial thromboplastin time (aPTT) in Platelet poor plasma by Coagulation assay N 30.1 seconds 24.5 seconds - 32.8 seconds October 12, 2023 6:18:00 PM UTC (TECH: HC) ORDER 1200: TROPONIN QUANT ( LOINC: 82403-4) ORDER DATE: October 12, 2023 5:56:00 PM UTC Specimen Source: Plasma PERFORMING LAB: [address] [id number] Result Comment: Final Result Date: October 12, 2023 6:31:00 PM UTC (TECH: MRB) LOINC TEST FLAG [place] [address]-4 Troponin I.cardiac panel - Serum or Plasma by High sensitivity method HH 635 ng/L 0 ng/L - 76 ng/L October 12, 2023 6:31:00 PM UTC (TECH: MRB) ORDER 1300: INFLUENZA A/B SC REEN (LOINC: 46997-7) ORDER DATE: October 12, 2023 5:56:00 PM UTC Specimen Source: Swab PERFORMING LAB: [address] [id number] Result Comment: Final Result Date: October 12, 2023 7:06:00 PM UTC (TECH: LT) LOINC TEST FLAG [place] [address]-9 Influenza virus A Ag [Presence] in Nose N negative NEGATIVE October 12, 2023 7:06:00 PM UTC (TECH: LT) 46143-0 Haemophilus influenzae B Ag [Presence] in Serum N negative NEGATIVE October 12, 2023 7:06:00 PM UTC (TECH: LT) 05923-0 Internal control result N PASS PASS October 12, 2023 7:06:00 PM UTC (TECH: LT) ORDER 1400: SARS-COV-2 SOLAN A IN HOUSE (LOINC: 46956-1) ORDER DATE: October 12, 2023 5:56:00 PM UTC Specimen Source: Nasopharyng eal PERFORMING LAB: [address] [id number] Result Comment: Final Result Date: October 12, 2023 7:37:00 PM UTC (TECH: MRB) LOINC TEST FLAG [place] [address]-6 SARS-CoV-2 (COVID-19) RNA [Presence] in Respiratory specimen by SONIA with probe detection N NEGATIVE NEGATIVE October 12, 2023 7:37:00 PM UTC (TECH: MRB) ORDER 1700: LACTIC ACID (PRIYANK NC: 77184-5) ORDER DATE: October 12, 2023 6:07:00 PM UTC Specimen Source: Serum/Plasm a PERFORMING LAB: [address] [id number] Result Comment: Final Result Date: October 12, 2023 7:07:00 PM UTC (TECH: LT) LOINC TEST FLAG [place] [address]-0 Lactate [Mass/volume] in Serum or Plasma N 0.9 mmole/L 0.4 mmole/L - 2.0 mmole/L October 12, 2023 7:07:00 PM UTC (TECH: LT) ORDER 1900: TROPONIN QUANT ( LOINC: 64787-1) ORDER DATE: October 12, 2023 8:21:00 PM UTC Specimen Source: Plasma PERFORMING LAB: [address] [id number] Result Comment: Final Result Date: October 12, 2023 9:04:00 PM UTC (TECH: HC) LOINC TEST FLAG [place] [address]-3 Troponin I.cardiac p rhiannon - Serum or Plasma by High sensitivity method HH 679 ng/L 0 ng/L - 51 ng/L October 12, 2023 9:04:00 PM UTC (TECH: HC) LABORATORY NARRATIVE RESULTS Information is not available RADIOLOGY RESULTS ORDER 1500: CHEST PA AND LAT (LOINC: 30267-0) ORDER DATE: October 12, 2023 5:56:00 PM [facility] PATHOLOGY NARRATIVE RESULTS Information is not available MICROBIOLOGY RESULTS No Micro Labs/Results Exist for Patient BLOOD ADMIN RESULTS Information is not available TREATMENT PLAN DISCHARGE MEDICATIONS Status RXNORM Medication Dose Route Frequency Dates Comments U pdated By Patient discharge medication information is not available. PATIENT OPEN ORDERS Code System Description Frequency Occurrences Priority Start Date Ordering Physician Updated By 600-7 LOINC Bacteria identified in Blood by Culture ONE TIME 0 Stat October 12, 2023 5:56:00 PM [facility] on October 12, 2023 5:56:00 PM [facility] 600-7 LOINC Bacteria identified in Blood by Culture ONE TIME 0 Stat October 12, 2023 5:56:00 [facility] on October 12, 2023 5:56:00 PM [facility] SCHEDULED PROCEDURES Code System Description Status Scheduled Date Upd ated By Patient scheduled procedure information is not available. MEDICATIONS HOME MEDICATIONS Status RXNORM Medication Dose Route Frequency Dates Comments R eported By Updated By Active 829228 montelukast 10 m g tablet 1.0 TAB PO DAILY Last Dose: [id number] on October 12, 2023 6:07:33 PM [facility] Active 298599 aspirin 81 mg tablet, delayed release (enteric coated) 1.0 TAB PO DAILY Last Dose: [id number] on October 12, 2023 6:07:33 PM [facility] Active 589943 hydrochlorothiaz i de 12.5 mg capsule 2.0 CAP PO DAILY Last Dose: [id number] on October 12, 2023 6:07:34 PM [facility] Active 8414189 Vraylar 3 mg capsule 1.0 CAP PO DAILY Last Dose: [id number] on October 12, 2023 6:07:34 PM [facility] Active 062735 carvedilol 3.125 mg tablet 1.0 TAB PO BID Last Dose: [id number] on October 12, 2023 6:07:34 PM [facility] Active 075985 trazodone 50 mg tablet 1.0 TAB PO DAILY Last Dose: [id number] on October 12, 2023 6:07:34 PM [facility] Active 622229 furosemide 40 mg tablet 1.0 TAB PO DAILY Last Dose: [id number] on October 12, 2023 6:07:34 PM [facility] Active 047156 atorvastatin 40 mg tablet 1.0 TAB PO DAILY Last Dose: [id number] on October 12, 2023 6:07:34 PM UTC Active 7966624 paroxetine HCl 2 0 mg tablet 1.0 TAB PO DAILY Last Dose: [id number] on October 12, 2023 6:07:34 PM UTC DISCHARGE MEDICATIONS Status RXNORM Medication Dose Route Frequency Dates Comments Physic lety Updated By No Discharge Medication Info rmation Available INPATIENT MEDICATIONS Status RXNORM Medication Dose Route Frequency Rate Quantity Dates Comments Physician Updated By Discont inued 0592749 LORazepam (ATIVAN) 2 MG/ML SOLN 2.0 MG IV PUSH ONE TIME ONLY Start: 2023 6:13:0 0 PM UTC End: 2023 6:13:[address] [facility] October 12, 2023 6:12:00 PM UTC Discont inued 1795729 SOLU-MEDROL 125 MG SOLR 125.0 MG IV PUSH ONE TIME ONLY Start: 2023 6:13:0 0 PM UTC End: 2023 6:13:0 [address] [facility] ED on October 12, 2023 6:12:00 PM UTC Discont inued aspirin childrens chewable 81 MG CHEW 81.0 MG BY MOUTH ONE TIME ONLY Start: 2023 6:51:0 0 PM UTC End: 2023 6:51:0 [address] [facility] ED on October 12, 2023 6:50:00 PM UTC Discont inued 6465591 diphenhydrA MINE (BENADRYL) 50 MG/ML SOLN 50.0 MG IV PUSH ONE TIME ONLY Start: 2023 7:19:0 0 PM UTC End: 2023 7:19:[address] [facility] on October 12, 2023 7:19:00 PM UTC Discont inued 7837220 DUONEB 0.5-2.5 MG/3 ML SOLN 1.0 NEB INHALE D ONE TIME ONLY Start: 2023 8:33:0 0 PM UTC End: 2023 8:33:0 0 PM UTC [facility] ED on October 12, 2023 8:32:00 PM UTC Discont inued 5269075 LORazepam (ATIVAN) 2 MG/ML SOLN 2.0 MG IV PUSH ONE TIME ONLY Start: 2023 8:35:0 0 PM UTC End: 2023 8:35:0 0 PM UTC [facility] ED on October 12, 2023 8:34:00 PM UTC Discont inued 9542743 KLOR-CON M20 20 MEQ TBCR 20.0 MEQ BY MOUTH ONE TIME ONLY Start: 2023 8:35:0 0 PM UTC End: 2023 8:35:0 0 PM UTC [facility] ED on October 12, 2023 8:34:00 PM UTC Discont inued 271681 azithromyci n (ZITHROMAX) 250 MG TABS 250.0 MG BY MOUTH ONE TIME ONLY Start: 2023 8:35:0 0 PM UTC End: 2023 8:35:0 0 PM UTC [facility] on October 12, 2023 8:34:00 PM UTC Discont inued 169830 enoxaparin (LOVENOX) 40 MG/0.4ML SOSY 40.0 MG SUBCUT ANEOUS ONE TIME ONLY Start: 2023 9:27:0 0 PM UTC End: 2023 9:27:0 0 PM UTC [facility] ED on October 12, 2023 9:26:00 PM UTC Discont inued 458072 ENOXAPARIN SODIUM 80 MG/0.8ML SOSY 80.0 MG SUBCUT ANEOUS ONE TIME ONLY Start: 2023 9:29:0 0 PM UTC End: 2023 9:29:0 0 PM UTC [facility] on October 12, 2023 9:27:00 PM UTC Discont inued 991116 benzonatate (TESSALON PERLES) 100 MG CAPS 100.0 MG BY MOUTH ONE TIME ONLY Start: 2023 9:45:0 0 PM UTC End: 2023 9:45:0 0 PM UTC [facility] ED on October 12, 2023 9:45:00 PM UTC Discont inued 359524 BACTRIM DS 800-160 MG TABS 1.0 TAB BY MOUTH ONE TIME ONLY Start: 2023 9:45:0 0 PM UTC End: 2023 9:45:0 0 PM UTC [facility] ED on October 12, 2023 9:45:00 PM UTC SOCIAL HISTORY SOCIAL HISTORY SNOMED-CT Social History Element Description Effective Dates Offered Cessation Comment UpdatedBy [id number] Smoking Status Unknown If Ever Smoked SOCIAL HISTORY - Gender Sex: Female SOCIAL HISTORY - Sexual Behavior Sexual Orientation Gender Identity SNOMED-CT Description SNO MED -CT Description Activity Level No of Partners Partner Type UpdatedBy VITAL SIGNS PATIENT VITAL SIGNS This section displays the mo st recent value for each vital sign as of October 13, 2023 12:39:06 AM [facility] Loinc Code Vital Sign Activity Date Result Updated By 8310-5 Body temperature October 12 5:48:00 PM UT 98.4 [degF] [id number] on October 12, 2023 5:51:19 PM UT 8462-4 Diastolic blood pressure October 12, 2023 10:07:00 PM UT 51.0 mm[Hg] [id number] on October 12, 2023 10:09:22 PM UT 8867-4 Heart rate October 12, 2023 11:00:00 PM UTC 91 /min [id number] on October 12, 2023 11:21:46 [place] [address]-6 Oxygen saturation in Arterial blood by Pulse oximetry October 12, 2023 11:00:00 PM UT 94.0 % [id number] on October 12, 2023 11:21:46 PM UT 9279-1 Respiratory rate October 12 9:46:00 PM UTC 18 /min [id number] on October 12, 2023 9:51:21 PM UT 8480-6 Systolic blood pressure October 12, 2023 10:07:00 PM UTC 102.0 mm[Hg] [id number] on October 12, 2023 10:09:22 PM [facility] PEDIATRIC GROWTH CHART - VITAL SIGNS This section displays Head C ircumference Percentile, Weight for Length Percentile and BMI Percentile Loinc Code Pediatric Measure Age (Months) Result Updat ed By HEALTH CONCERNS Problems Concern Status Health Concern problem infor mation not available. Smoking Status Status Years Used Consumed packs p er day Health Concern smoking histo ry information not available. Family History Concern Status Health Concern family histor y information not available. ENCOUNTERS ENCOUNTER INFORMATION Reason for Visit SHORTNESS OF BREATH Admission October 12, 2023 5:18:[address] [id number] Discharge October 12, 2023 11:39:00 PM [facility] ANOTHER [facility] ENCOUNTER DIAGNOSES Notes information is not kiet ilable. Code System Diagnosis Onset Date Diagnosis information is not available. ABSTRACT DIAGNOSES Code System Diagnosis Updated By Abstract Diagnosis informati on is not available. 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 Role on Team Status Start Date End Date Update d By COLLEEN NUR DO Referring normal October 12, 2023 6:53:14 PM [facility] October 12, 2023 11:39:00 PM [facility] [id number] on October 12, 2023 6:53:14 PM [facility] COLLEEN NUR DO Attending normal October 12, 2023 6:53:14 PM [facility] October 12, 2023 11:39:00 PM [facility] [id number] on October 12, 2023 6:53:14 PM [facility] COLLEEN NUR DO Admitting normal October 12, 2023 6:53:14 PM [facility] October 12, 2023 11:39:00 PM [facility] [id number] on October 12, 2023 6:53:14 PM [facility] ADRIANNE BENITEZ MD PCP normal October 12, 2023 5:19:10 PM [facility] October 12, 2023 11:39:00 PM [facility] [id number] on October 12, 2023 6:53:14 PM [facility]
[2023-10-13] MEDS: IOPAMIDOL-370 (76%);100ML BOTTLE 50 ML IV (13:32)
--- NOTE | 2023-10-13 16:18 | PC.NURSE ---
pt. refused further blood pressures.
--- NOTE | 2023-10-13 16:34 | EXP.ACUTE.PN ---
Subjective *Date: 10/13/23 *Time: 17:39 Interval history: Patient still having tightness on morning exam. Shortness of breath somewhat improved with treatment for COPD exacerbation. Afebrile overnight. Awaiting cardiology eval. Medical Exam Vital signs and Labs for Last 24 Hours: Vital Signs Temp Pulse Pulse Resp BP Pulse Ox O2 Del Method 10/13/23 15:35 97.8 F 91 H 17 123/72 93 L Room Air 10/13/23 15:05 97.8 F 89 17 111/70 Nasal Cannula 10/13/23 16:27 Nasal Cannula 10/13/23 14:35 97.8 F 81 17 104/58 L 97 10/13/23 14:05 97.8 F 81 16 101/73 L 97 Nasal Cannula 10/13/23 13:50 97.8 F 84 16 103/57 L 97 10/13/23 13:35 97.8 F 83 16 102/63 L 93 L Room Air 10/13/23 13:20 97.8 F 67 16 117/67 94 L Room Air 10/13/23 13:15 Nasal Cannula 10/13/23 11:27 98.2 F 77 18 125/65 99 Nasal Cannula 10/13/23 10:51 Nasal Cannula 10/13/23 08:00 94 L Nasal Cannula 10/13/23 07:58 98.1 F 100 H 18 118/75 94 L Nasal Cannula 10/13/23 07:33 Nasal Cannula 10/13/23 06:24 Nasal Cannula 10/13/23 04:00 98 F 90 16 118/70 95 10/13/23 04:59 Nasal Cannula 10/13/23 02:49 Nasal Cannula 10/13/23 01:00 Nasal Cannula 10/13/23 00:00 98 F 98 H 20 147/91 H 93 L 10/13/23 00:00 98 H 10/12/23 23:31 98 H 10/12/23 23:31 100 H 10/12/23 23:00 Nasal Cannula 10/12/23 21:00 Nasal Cannula 10/12/23 20:00 93 L Nasal Cannula 10/12/23 20:00 94 H 10/12/23 20:00 97.8 F 94 H 20 126/76 93 L Room Air O2 Flow Rate 10/13/23 15:35 10/13/23 15:05 3 10/13/23 16:27 3 10/13/23 14:35 3 10/13/23 14:05 3 10/13/23 13:50 3 10/13/23 13:35 10/13/23 13:20 10/13/23 13:15 3 10/13/23 11:27 3 10/13/23 10:51 3 10/13/23 08:00 3 10/13/23 07:58 3 10/13/23 07:33 3 10/13/23 06:24 10/13/23 04:00 10/13/23 04:59 3 10/13/23 02:49 3 10/13/23 01:00 3 10/13/23 00:00 10/13/23 00:00 10/12/23 23:31 10/12/23 23:31 10/12/23 23:00 3 10/12/23 21:00 3 10/12/23 20:00 3 10/12/23 20:00 10/12/23 20:00 Intake and Output 10/13/23 10/13/23 10/13/23 07:59 15:59 23:59 Intake Total 2162 / 2412 250 / 2412 Output Total Balance 2161 / 2411 250 / 2411 Intake: Intake, Oral Amount 1911 Intake, Total IV Amount 250 / 500 250 / 500 Doxycycline Hyclate 100 mg In 0 250 / 500 250 / 500 .9 % Sodium Chloride 250 ml @ 166.667 mls/hr IV Q12H [facility] Rx#: [id number] Output: Output, Stool Amount Other: Number of Voids 2 Number of Unmeasured Voids 2 Weight 71.033 kg Patient Weight 10/13/23 23:59 Weight 71.033 kg Laboratory Results - last 24 hr 10/12/23 01:40: Chlamy pneumoniae PCR TNP, Adenovirus (PCR) Not detected, B. pertussis DNA (PCR) TNP, Coronavirus OC43 (PCR) Not detected, Coronavirus HKU1 (PCR) Not detected, Coronavirus 229E (PCR) Not detected, SARS-CoV-2 (PCR) Not detected, Coronavirus NL63 (PCR) Not detected, Human Metapneumovir PCR Not detected, Influenza A (H1) PCR Not detected, Influ A (H1N1/09) PCR Not detected, Influenza A (H3) PCR Not detected, Influenza Type A (PCR) Not detected, Influenza Type B (PCR) Not detected, M. pneumoniae (PCR) TNP, Parainfluenza 1 (PCR) Not detected, Parainfluenza 2 (PCR) Not detected, Parainfluenza 3 (PCR) Not detected, Parainfluenza 4 (PCR) Not detected, RSV (PCR) Not detected, Entero/Rhino (PCR) Not detected 10/12/23 20:07: WBC 3.0 L, RBC 5.07, Hgb 15.2, Hct 45.3, MCV 89.3, MCH 30.0, MCHC 33.6, RDW 14.3, Plt Count 105 L, MPV 9.5, Neut % (Auto) 62.5, Lymph % (Auto) 34.3, [place] % (Auto) 2.2, Eos % (Auto) 0.3, Baso % (Auto) 0.8, Neut # (Auto) 1.9, Lymph # (Auto) 1.0, [place] # (Auto) 0.1, Eos # (Auto) 0.0, Baso # (Auto) 0.0, Sodium 137, Potassium 3.7, Chloride 102, Carbon Dioxide 31 H, Anion Gap 7.7, BUN 8, Creatinine 0.50 L, Estimated GFR 130, Est GFR ( Amer) 157, Glucose 127 H, Calcium 8.6, Total Bilirubin 0.5, AST 44 H, ALT 30, Alkaline Phosphatase 83, Troponin I 0.37 H, Total Protein 6.0 L, Albumin 3.4 L, Globulin 2.6, Albumin/Globulin Ratio 1.3, Triglycerides 110, Cholesterol 139 L, LDL Cholesterol Direct 96.42 L, VLDL Cholesterol 22, HDL Cholesterol 27 L, Cholesterol/HDL Ratio 5.1 H 10/13/23 05:52: WBC 4.4 L D, RBC 4.71, Hgb 14.4, Hct 41.5, MCV 88.2, MCH 30.7, MCHC 34.8, RDW 14.2, Plt Count 103 L, MPV 9.7, Neut % (Auto) 56.8, Lymph % (Auto) 35.7, [place] % (Auto) 6.9, Eos % (Auto) 0.1, Baso % (Auto) 0.5, Neut # (Auto) 2.5, Lymph # (Auto) 1.6, [place] # (Auto) 0.3, Eos # (Auto) 0.0, Baso # (Auto) 0.0, Sodium 138, Potassium 3.5, Chloride 104, Carbon Dioxide 29, Anion Gap 8.5, BUN 11 D, Creatinine 0.50 L, Estimated Creat Clear 148, Estimated GFR 130, Est GFR ( Amer) 157, Glucose 125 H, Calcium 8.8, Magnesium 1.8, Total Bilirubin 0.5, AST 40 H, ALT 32, Alkaline Phosphatase 74, Troponin I 0.20 H, NT-Pro-B Natriuret Pep 2650 H, Total Protein 6.1 L, Albumin 3.4 L, Globulin 2.7, Albumin/Globulin Ratio 1.3, Triglycerides 127, Cholesterol 134 L, LDL Cholesterol Direct 89.70 L, VLDL Cholesterol 25, HDL Cholesterol 22 L, Cholesterol/HDL Ratio 6.1 H I & O for Labs for Last 24 Hours: Intake & Output 10/10/23 10/11/23 10/12/23 10/13/23 23:59 23:59 23:59 23:59 Intake Total 2411 / 2 Output Total Balance -2410 Weight 71.033 kg Constitutional: Present no acute distress, average body habitus and chronically ill appearing Head: Present atraumatic and normocephalic ENT: Present normal exam Neck: Present normal inspection Respiratory: Present prolonged expiratory phase, rhonchi, wheezes and normal respiratory effort; Absent crackles Cardiac: Present Reg Rate and Rhythm GI: Present normal bowel sounds; Absent tenderness Extremities: Present normal inspection and full ROM Skin: Present intact; Absent erythema Neuro: Present Grossly Intact, alert, awake, oriented x 3 and moves all extremities Assessment and Plan *Assessment and plan (1) NSTEMI (non-ST elevated myocardial infarction): Status: Acute Category: Medical Code(s): I21.4 - Non-ST elevation (NSTEMI) myocardial infarction (2) Takotsubo cardiomyopathy: Status: Acute Category: Medical Code(s): I51.81 - Takotsubo syndrome (3) COPD exacerbation: Status: Acute Category: Medical Code(s): J44.1 - Chronic obstructive pulmonary disease with (acute) exacerbation (4) Elevated troponin: Status: Acute Category: Medical Code(s): R79.89 - Other specified abnormal findings of blood chemistry (5) Anxiety: Status: Acute Category: Medical Code(s): F41.9 - Anxiety disorder, unspecified (6) Current smoker: Status: Acute Category: Social Hx Code(s): F17.200 - Nicotine dependence, unspecified, uncomplicated Plan 53-year-old female, with past medical history of COPD on home oxygen 3 L at nighttime, hypertension, HLD, anxiety coming to the [facility] ER for evaluation increase of shortness of breath. Initially patient reported symptoms began the night before admission. Medications from other facility reviewed independently. No negative for acute intrathoracic process. EKG is reviewed. No ischemic changes. Improved to 2 L this morning. Taken for left heart cath, found to have Takotsubo cardiomyopathy. Medically managing at this time. Continues to require admission overnight while awaiting echo results. Problems addressed as follows: Takotsubo cardiomyopathy NSTEMI -Cardiology consulted, appreciate their recommendations. Status post cath. Found to have Takotsubo cardiomyopathy with large regional wall motion abnormality. EF reduced on ventriculogram. Echo obtained, formal read pending. Mild nonflow limiting coronary artery disease- Continue low 3.125 mg to daily. Initiate irbesartan 37.5 mg in the morning Continue Lipitor 40 mg nightly, aspirin 81 mg daily Kidney function and electrolytes normal. White cell count 4.4. LDL 90. Repeat CBC, CMP, magnesium ordered for the morning. -Acute exacerbation of COPD: Continue doxycycline 100 mg twice daily for 5 days Holding on steroids in the setting of acute cardiomyopathy DuoNeb every 6 Monitor for O2 saturation. Keep above 90, currently on 2 L Sputum culture pending Negative respiratory panel Anxiety exacerbated due to acute hospitalization Resume home Paxil trazodone one time Clonazepam 0.25mg given Current smoker: On nicotine patch daily. Counseled on benefits of smoking cessation. Lovenox for DVT prophylaxis. On Protonix full code
[2023-10-13] MEDS: NICOTINE 21MG/24HR PATCH 21 MG TD (16:54)
--- NOTE | 2023-10-13 17:01 | PC.NURSE ---
Right wrist radial band removed and non adherent dressing placed with tegaderm.
[2023-10-13] MEDS: MONTELUKAST SODIUM 10MG TAB 10 MG PO (17:53)
[2023-10-13] MEDS: BUDESONIDE 0.5MG/2ML NEB 0.5 MG IH (18:05)
[2023-10-13] MEDS: TRAZODONE 50MG TABLET 50 MG PO (20:05)
[2023-10-14] VITALS: BP 119/71; PULSE 63; RESP 18; TEMP 36.5; O2SAT 95
[2023-10-14 00:04] VITALS: PULSE 87; PULSE 89
[2023-10-14] MEDS: DOXYCYCLINE HYCLATE 100 MG in 0.9 % SODIUM CHLORIDE 250 ML 166.667000000000002 MG IV (00:09)
[2023-10-14 04:00] VITALS: BP 121/69; PULSE 81; RESP 18; TEMP 36.7; O2SAT 95; BMI 27.3
--- NOTE | 2023-10-14 04:39 | PC.NURSE ---
Pt A&Ox4. Pt has had no complaints throughout the shift. Pt ambulates in the room independently. R radial cath site dressing CDI. Pt remains on 3L NC through the night at baseline, O2 sats >90%. Expiratory wheezing bilateral lungs. Pt did have one coughing spell that was non productive. Pt has rested well.
[2023-10-14 06:10] VITALS: PULSE 85; PULSE 88; O2SAT 97
[2023-10-14] MEDS: IPRATROPIUM/ALBUTEROL 3 ML NEB IH (06:10)
[2023-10-14] MEDS: BUDESONIDE 0.5MG/2ML NEB 0.5 MG IH (06:10)
[2023-10-14 07:09] LABS: Anion Gap 9.2 mEq/L (5-15); Aspartate Amino Transferase 40 U/L (14-36); Bilirubin,Total 0.4 mg/dl (0.2-1.3); Blood Urea Nitrogen 16 mg/dl (7-17); Calcium 8.6 mg/dl (8.4-10.2); Carbon Dioxide 26 mmol/L (22.0-30.0); Chloride 108 mmol/L (98-107); Creatinine Clearance Estimated 129 mL/min (50-200); Estimated Glomerular Filt Rate 105 ml/min (>60); GFR (African American) 127 ML/MIN (>60); Glucose 91 mg/dl (74-100); Potassium 3.2 mmoL/L (3.5-5.1); Sodium 140 mmol/L (136-145)
[2023-10-14 07:10] LABS: Alanine Aminotransferase 29 U/L (12-78); Albumin Level 3.3 g/dl (3.5-5.0); Albumin/Globulin Ratio 1.3 (1.1-1.8); Alkaline Phosphatase 65 U/L (38-126); Globulin 2.6 g/dL (1.3-3.2); Total Protein,Serum 5.9 g/dl (6.3-8.2)
--- NOTE | 2023-10-14 07:14 | EXP.DC.SUM ---
General Admission date:: 10/12/23 Discharge date: 10/14/23 HPI HPI HPI: This is a 53-year-old female, with past medical history of COPD on home oxygen 3 L at nighttime, hypertension, HLD, anxiety coming to the [facility] ER for evaluation increase of shortness of breath. Initially patient reported symptoms began the night before admission. She also reported having cough with some productive greenish sputum. Denies any fever, or chest pain, chills or sweats, no nausea or vomiting. On arrival patient underwent a CT of the chest that ruled out PEs. EKG was showed normal sinus rhythm with ST-T elevations or depressions. Initial troponin at her facility was elevated, therefore, our facility was contacted for transfer and cardiology consult. On arrival here. Patient continues to have difficulty breathing, remains on 3 L. Denies chest pain. Admitted for further workup Hospital Course Hospital Course Hospital Course: 53-year-old female, with past medical history of COPD on home oxygen 3 L at nighttime, hypertension, HLD, anxiety coming to the [facility] ER for evaluation increase of shortness of breath. Initially patient reported symptoms began the night before admission. Medications from other facility reviewed independently. No negative for acute intrathoracic process. EKG is reviewed. No ischemic changes. Improved to 2 L this morning. Taken for left heart cath, found to have Takotsubo cardiomyopathy. Medically managing. EF normal. Stable for discharge home. Close follow-up with cardiology as an outpatient. Problems addressed as follows: Takotsubo cardiomyopathy NSTEMI -Cardiology consulted, appreciate their recommendations. Status post cath. Found to have Takotsubo cardiomyopathy with large regional wall motion abnormality. EF reduced on ventriculogram. Echo obtained showing preserved ejection fraction of 60%. Patient found to have mild nonflow limiting coronary artery disease. Initiated on irbesartan 37.5 mg daily. Continue carvedilol 3.125 mg twice daily. Continue Lipitor 40 mg nightly, aspirin 81 mg daily. Counseled on need for smoking cessation. Patient overall doing well. Follow-up with cardiology as an outpatient. -Acute exacerbation of COPD: Initiated on doxycycline 100 mg twice daily for COPD exacerbation. Held steroids in the setting of acute cardiomyopathy. Continue breathing treatments at home and supplemental oxygen as needed. Patient on oxygen at home. Negative respiratory panel. Anxiety exacerbated due to acute hospitalization and recent diagnosis of her daughter. Continue home Paxil and trazodone. Current smoker: On nicotine patch daily. Counseled on benefits of smoking cessation. Discharged with nicotine patches. Exam Data for Last 24 hours Vital signs and Labs for Last 24 Hours: Temp Pulse Resp BP Pulse Ox O2 Del Method O2 Flow Rate 98.1 F 85 18 121/69 97 Nasal Cannula 3 10/14/23 04:00 10/14/23 06:10 10/14/23 04:00 10/14/23 04:00 10/14/23 06:10 10/14/23 06:50 10/14/23 06:50 Laboratory Results - last 24 hr 10/13/23 05:52: Troponin I 0.20 H, NT-Pro-B Natriuret Pep 2650 H 10/14/23 06:34: Sodium 140, Potassium 3.2 L, Chloride 108 H, Carbon Dioxide 26, Anion Gap 9.2, BUN 16 D, Creatinine 0.60, Estimated Creat Clear 129, Estimated GFR 105, Est GFR ( Amer) 127, Glucose 91, Calcium 8.6, Magnesium 2.0 D, Total Bilirubin 0.4, AST 40 H, ALT 29, Alkaline Phosphatase 65, Total Protein 5.9 L, Albumin 3.3 L, Globulin 2.6, Albumin/Globulin Ratio 1.3 I & O for Last 24 hours: Intake & Output 10/11/23 10/12/23 10/13/23 10/14/23 23:59 23:59 23:59 23:59 Intake Total 2622 / 2622 250 / 250 Output Total 2 / 3 Balance -2 2621 / 2621 250 / 250 Weight 71.033 kg 74.298 kg Constitutional Constitutional: no acute distress, average body habitus and chronically ill appearing *Routine HEENT Exam Head: Present normocephalic Eye: Present EOMI and PERRL ENT: Present mucous membranes moist *Routine Neck Exam Neck: Present supple; Absent lymphadenopathy *Routine Respiratory Exam Respiratory: Present CTA bilaterally; Absent rhonchi, wheezes or crackles *Routine Cardiovascular Exam Cardiovascular: Present RRR *Routine Abdominal Exam Abdominal: Present soft and normoactive bowel sounds; Absent tenderness *Routine Extremities Exam Extremities: Absent cyanosis, clubbing or edema Comments: Right radial insertion site clean, dry, intact. *Routine Skin Exam Skin: Present warm; Absent rash *Routine Neurological Exam Neurological: Present alert, oriented X3 and moving all extremities; Absent altered mental status Results Data Completed and Pending Labs on day of discharge: Labs from last 24 hours 10/14/23 10/13/23 06:34 05:52 Sodium 140 Potassium 3.2 L Chloride 108 H Carbon Dioxide 26 Anion Gap 9.2 BUN 16 D Creatinine 0.60 Estimated Creat Clear 129 Estimated GFR 105 Est GFR ( Amer) 127 Glucose 91 Calcium 8.6 Magnesium 2.0 D Total Bilirubin 0.4 AST 40 H ALT 29 Alkaline Phosphatase 65 Troponin I 0.20 H NT-Pro-B Natriuret Pep 2650 H Total Protein 5.9 L Albumin 3.3 L Globulin 2.6 Albumin/Globulin Ratio 1.3 DS: Diagnosis Discharge Diagnosis (1) NSTEMI (non-ST elevated myocardial infarction): Status: Acute Code(s): I21.4 - Non-ST elevation (NSTEMI) myocardial infarction (2) Takotsubo cardiomyopathy: Status: Acute Code(s): I51.81 - Takotsubo syndrome (3) COPD exacerbation: Status: Acute Code(s): J44.1 - Chronic obstructive pulmonary disease with (acute) exacerbation (4) Elevated troponin: Status: Acute Code(s): R79.89 - Other specified abnormal findings of blood chemistry (5) Anxiety: Status: Acute Code(s): F41.9 - Anxiety disorder, unspecified (6) Current smoker: Status: Acute Code(s): F17.200 - Nicotine dependence, unspecified, uncomplicated Meds Home Medications and Allergies Home Medications Medication Instructions Recorded Confirmed Type atorvastatin 40 mg tablet 40 mg PO DAILY Cholesterol 10/12/23 10/12/23 History cariprazine 3 mg capsule (Vraylar) 3 mg PO DAILY Mood 10/12/23 10/12/23 History carvedilol 3.125 mg tablet (Coreg) 3.125 mg PO BID High Blood Pressure 10/12/23 10/12/23 History hydrochlorothiazide 12.5 mg capsule 25 mg PO DAILY Fluid 10/12/23 10/13/23 History hydrocodone 7.5 mg-acetaminophen 1 tab PO Q6HP PRN Moderate Pain 10/12/23 10/13/23 History 325 mg tablet (Scale Score 5-6) montelukast 10 mg tablet 10 mg PO PM Allergy Symptoms 10/12/23 10/13/23 History paroxetine HCl 20 mg tablet 20 mg PO DAILY 10/12/23 10/12/23 History trazodone 50 mg tablet 50 mg PO HSP PRN Insomnia 10/12/23 10/13/23 History albuterol sulfate 90 mcg/actuation 2 puff inhalation Q4HP PRN 10/13/23 10/13/23 History aerosol inhaler (Ventolin HFA) Shortness Of Breath aspirin 81 mg tablet,delayed 81 mg PO DAILY Heart Health 10/13/23 10/13/23 History release cyclobenzaprine 10 mg tablet 10 mg PO TID Muscle Spasm 10/13/23 10/13/23 History gabapentin 600 mg tablet 600 mg PO QID Pain 10/13/23 10/13/23 History ipratropium 0.5 mg-albuterol 3 mg 3 ml inhalation Q4HP PRN Wheezing 10/13/23 10/13/23 History (2.5 mg base)/3 mL nebulization soln ipratropium 20 mcg-albuterol 100 1 puff inhalation QID Breathing 10/13/23 10/13/23 History mcg/actuation mist for inhalation Problems (Combivent Respimat) doxycycline hyclate 100 mg capsule 100 mg PO BID 4 days #7 caps 10/14/23 Rx furosemide 40 mg tablet 40 mg PO DAILY 30 days #30 tabs 10/14/23 Rx irbesartan 75 mg tablet 37.5 mg PO DAILY 30 days #15 tabs 10/14/23 Rx nicotine 21 mg/24 hr daily 21 mg transdermal DAILYP PRN 10/14/23 Rx transdermal patch Nicotine Cravings 28 days #28 ea New Prescriptions to Start Prescriptions: doxycycline hyclate Damion,Raudel furosemide Raudel Bruno irbesartan Damion,Raudel nicotine Damion,Raudel Allergies Allergy/AdvReac Type Severity Reaction Status Date / Time azithromycin AdvReac Severe Swelling Verified 10/12/23 20:05 of Lip/Tongue/Throat Penicillins AdvReac Severe Swelling Verified 10/12/23 20:05 of Lip/Tongue/Throat Discharge Plan Disposition Patient Disposition: Home, Self-Care Condition: Fair Discharge Order Discharge Orders: Discharge Order (Routine); Ordered 10/14/23 Ordered By: Raudel Bruno Follow up Plan Follow up with: Kiera Duran MD [Primary Care Provider] - Enter time for follow up (Please call to make your follow up appt. ) Lavell Curiel MD [Staff Physician] - 10/24/23 9:10 am Prescriptions/Medication Reconciliation: New nicotine 21 mg/24 hr Patch 24 Hour 21 mg transdermal DAILYP PRN (Reason: Nicotine Cravings) 28 Days Qty: 28 2RF irbesartan 75 mg Tablet 37.5 mg PO DAILY 30 Days Qty: 15 0RF doxycycline hyclate 100 mg capsule 100 mg PO BID 4 Days Qty: 7 0RF Continued montelukast 10 mg Tablet 10 mg PO PM hydrochlorothiazide 12.5 mg Capsule 25 mg PO DAILY Vraylar 3 mg Capsule 3 mg PO DAILY carvedilol [Coreg] 3.125 mg Tablet 3.125 mg PO BID Rx Instructions: must administer with a meal/food trazodone 50 mg Tablet 50 mg PO HSP PRN (Reason: Insomnia) atorvastatin 40 mg Tablet 40 mg PO DAILY paroxetine HCl 20 mg Tablet 20 mg PO DAILY hydrocodone-acetaminophen 7.5-325 mg Tablet 1 tab PO Q6HP PRN (Reason: Moderate Pain (Scale Score 5-6)) cyclobenzaprine 10 mg tablet 10 mg PO TID Patient Comments: TAKE 1 TABLET BY MOUTH THREE TIMES DAILY gabapentin 600 mg tablet 600 mg PO QID Patient Comments: TAKE 1 TABLET BY MOUTH 4 TIMES A DAY DO NOT FILL UNTIL 09/03 AND 10/03 ipratropium-albuterol 0.5 mg-3 mg(2.5 mg base)/3 mL solution for nebulization 3 ml INHALATION Q4HP PRN (Reason: Wheezing) Patient Comments: USE 1 VIAL VIA NEBULIZER EVERY 4 HOURS NEEDED FOR WHEEZING. aspirin 81 mg tablet,delayed release (DR/EC) 81 mg PO DAILY Patient Comments: TAKE 1 TABLET BY MOUTH ONCE DAILY albuterol sulfate [Ventolin HFA] 90 mcg/actuation HFA aerosol inhaler 2 puff INHALATION Q4HP PRN (Reason: Shortness Of Breath) Patient Comments: INHALE 1 TO 2 PUFFS EVERY 4 TO 6 HOURS NEEDED. Combivent Respimat 20-100 mcg/actuation mist 1 puff INHALATION QID Patient Comments: INHALE 1 PUFF BY MOUTH FOUR TIMES DAILY Changed furosemide 40 mg Tablet 40 mg PO DAILY 30 Days Qty: 30 0RF Problem Reconciliation Problems Reviewed?: Yes Patient Discharge Instructions ACTIVITY: Continue current activity DIET: continue same diet Patient Instructions: Cardiac Catheterization, DI for Surgical Site Infection, How to Quit Smoking Providers Primary Care Provider: Kiera Duran Admit Provider: Raudel Bruno Attending Provider: Raudel Bruno
[2023-10-14 07:15] LABS: Basophils % 0.7 % (0.1-2.0); Hematocrit 42.3 % (37.0-47.0); Hemoglobin 14.3 g/dL (12.2-16.2); Lymphocytes % 46.7 % (10-50); Mean Corpuscular HGB Conc 33.9 g/dL (31.8-35.4); Mean Corpuscular Hemoglobin 30.5 pg (27.0-31.2); Mean Corpuscular Volume 89.9 fl (81-99); Mean Platelet Volume 9.3 fl (7.4-10.4); Monocytes # 0.4 K/mm3 (0.1-1.0); Monocytes % 5.4 % (1.7-9.3); Neutrophils % 47.2 % (37.0-80.0); Platelet Count 125 K/mm3 (142-424); Red Cell Distribution Width 14.3 % (11.5-17.5); White Blood Count 6.4 K/mm3 (4.8-10.8)
[2023-10-14 07:55] VITALS: BP 101/64; PULSE 72; RESP 20; TEMP 36.6; O2SAT 97
[2023-10-14] MEDS: PARoxetine 20MG TABLET 20 MG PO (08:05)
[2023-10-14] MEDS: CARVEDILOL 3.125MG TABLET 3.125 MG PO (08:05)
[2023-10-14] MEDS: hydroCHLOROthiazide 12.5MG CAPSULE 12.5 MG PO (08:05)
[2023-10-14] MEDS: PANTOPRAZOLE 40MG TABLET 40 MG PO (08:05)
[2023-10-14] MEDS: ASPIRIN EC 81MG TABLET 81 MG PO (08:05)
[2023-10-14] MEDS: ATORVASTATIN 40MG TABLET 40 MG PO (08:05)
[2023-10-14] MEDS: APAP/HYDROCODONE 325MG/7.5MG TAB 1 TAB PO (08:06)
--- NOTE | 2023-10-17 11:14 | CARE MANAGER ---
Contacted patient related to hospital discharge. Patient states she has only been taking the new medications she was sent with. We discussed medications and dosages of what she should be taking and verbalized understanding. She denies any other questions or concerns. CLAUDIA Lu
== END 2023-10-14 09:58 | disposition home or self-care (01) | DRG 281 ==
PROVIDERS: Internal Medicine; Nurse Practitioner Family; Admitting Provider Internal Medicine Adolescent Medicine; PCP Family Medicine; Visit Provider Internal Medicine Adolescent Medicine
PROC: 4A023N7 Measurement of Cardiac Sampling and Pressure, Left Heart, Percutaneous Approach (ICD-10-PCS; principal; 2023-10-13 12:45)
DX: I21.4 Non-ST elevation (NSTEMI) myocardial infarction (principal); I51.81 Takotsubo syndrome; J44.1 Chronic obstructive pulmonary disease with (acute) exacerbation; E78.5 Hyperlipidemia, unspecified; F41.9 Anxiety disorder, unspecified; F17.200 Nicotine dependence, unspecified, uncomplicated; I10 Essential (primary) hypertension; Z99.81 Dependence on supplemental oxygen; I25.10 Atherosclerotic heart disease of native coronary artery without angina pectoris
CPT/HCPCS: 36415; 71045; 80053; 80061; 83735; 83880; 84484; 85025; 87070; 87205; 87632; 87635; 93306; 93458; 94640; 94761; 99152; C1725; C1760; C1769; J1644; Q9967